=== PATIENT | female | born 1980 | race Caucasian/White ===

== ENCOUNTER 2017-10-15 20:53 | Emergency (ER) | payer BC, OTHER ==
[~2017-10-15] VITALS: Ht 142.2 cm; Wt 44.0 kg
[~2017-10-15 20:53] MED LIST: BCP; DICY10CA3 PO; FLUO20CA19 PO; LEVO75TA8; SERT50TA PO
[2017-10-15 20:56] VITALS: BP 129/85
[2017-10-15 21:42] LABS: HCG UR SG 1.026 (1.003-1.030)
[2017-10-15 21:44] LABS: CULTURE INDICATED? YES; MICROSCOPIC INDICATED
== END 2017-10-15 23:17 | disposition home or self-care (01) ==
LOC: ED 21:34
DX: N30.00 Acute cystitis without hematuria (principal); R30.0 Dysuria; Z90.49 Acquired absence of other specified parts of digestive tract
CPT/HCPCS: 81001; 81025; 87086; 99284

== ENCOUNTER 2017-11-03 18:40 | Emergency (ER) | payer BC, MEDICAID ==
[~2017-11-03] VITALS: Ht 144.8 cm; Wt 46.3 kg
[2017-11-03 19:22] LABS: BASOPHILS # (AUTO) 0.04 x10^3/uL (0-0.1); BASOPHILS % (AUTO) 0 % (0-1); EOSINOPHILS # (AUTO) 0.06 x10^3/uL (0-0.4); EOSINOPHILS % (AUTO) 1 % (1-7); LYMPHOCYTES # (AUTO) 3.39 x10^3/uL (1-3.4); LYMPHOCYTES % (AUTO) 34 % (22-44); MD NO; MEAN CORPUSCULAR HEMOGLOBIN 32.3 pg (27.0-34.8); MEAN CORPUSCULAR HGB CONC 33.5 g/dL (32.4-35.8); MEAN CORPUSCULAR VOLUME 96.6 fL (80-100); MEAN PLATELET VOLUME 7.7 fL (7.4-10.4); MONOCYTES # (AUTO) 0.63 x10^3/uL (0.2-0.8); MONOCYTES % (AUTO) 6 % (2-9); NEUTROPHILS # (AUTO) 5.71 x10^3/uL (1.8-6.8); NEUTROPHILS % (AUTO) 58 % (42-75); PLATELET COUNT 288 x10^3/uL (130-400); RED BLOOD COUNT 4.21 x10^6/uL (3.82-5.3)
[2017-11-03] MEDS ORDERED: ACETAMINOPHEN 500 MG TABLET PO ONE (19:30)
[2017-11-03] MEDS ORDERED: KETOROLAC 30 MG/1 ML IM ONE (19:30)
[2017-11-03] MEDS ORDERED: ONDANSETRON ODT 4 MG PO ONE (19:30)
[2017-11-03 19:32] LABS: ALANINE AMINOTRANSFERASE 15 U/L (12-78); ALBUMIN 3.7 g/dL (3.4-5.0); ANION GAP 5 mmol/L (5-15); CALCIUM 8.7 mg/dL (8.5-10.1); CHLORIDE 109 mmol/L (98-107); CREATININE 0.69 mg/dL (0.55-1.02)
[2017-11-03] MEDS ORDERED: ONDANSETRON ODT 4 MG ONE (19:35)
[2017-11-03] MEDS ORDERED: ACETAMINOPHEN 500 MG TABLET ONE (19:35)
[2017-11-03] MEDS ORDERED: KETOROLAC 30 MG/1 ML ONE (19:35)
[2017-11-03 19:37] LABS: ALKALINE PHOSPHATASE 57 U/L (45-117); BILIRUBIN,TOTAL 0.3 mg/dL (0.2-1.0); TOTAL PROTEIN 7.4 g/dL (6.4-8.2)
[2017-11-03 19:48] LABS: MICROSCOPIC NOT IND
[2017-11-03 19:54] LABS: CULTURE INDICATED? NO
[2017-11-03 20:29] VITALS: BP 124/79
== END 2017-11-03 20:30 | disposition home or self-care (01) ==
LOC: ED 19:07
DX: R10.84 Generalized abdominal pain (principal); R11.0 Nausea; R53.81 Other malaise
CPT/HCPCS: 36415; 80053; 81003; 83690; 84703; 85025; 96372; 99284; J1885; Q0162

== ENCOUNTER 2018-01-17 20:18 | Emergency (ER) | payer MEDICAID ==
[~2018-01-17] VITALS: Ht 144.8 cm; Wt 50.0 kg
[2018-01-17 20:48] VITALS: BP 125/82
[2018-01-17 21:42] LABS: MICROSCOPIC NOT IND
[2018-01-17 21:46] LABS: CULTURE INDICATED? NO
== END 2018-01-17 22:10 | disposition home or self-care (01) ==
LOC: ED 22:00
DX: J06.9 Acute upper respiratory infection, unspecified (principal); Z90.49 Acquired absence of other specified parts of digestive tract
CPT/HCPCS: 81003; 99283

== ENCOUNTER 2018-09-08 08:41 | Inpatient (IN) | payer MEDICAID ==
[~2018-09-08] VITALS: Ht 144.8 cm; Wt 60.9 kg
[2018-09-08 09:01] VITALS: BP 118/66
[2018-09-08] MEDS ORDERED: LACTATED RINGERS 1,000 ML IV SCH ×2 (09:46→10:37)
[2018-09-08] MEDS ORDERED: OXYTOCIN 30U/ 0.9% NaCL 500ML 500 ML IV ONE (09:46)
[2018-09-08] MEDS ORDERED: NEWBORN KIT ONE (09:56)
[2018-09-08] MEDS ORDERED: LIDOCAINE 1%, 20ML ONE (09:56)
[2018-09-08] MEDS ORDERED: OXYTOCIN 30U/ 0.9% NaCL 500ML 500 ML ONE (09:57)
[2018-09-08] MEDS ORDERED: MISOPROSTOL 200 MCG TABLET ONE (09:57)
[2018-09-08] MEDS ORDERED: ONDANSETRON 2MG/ML, 2ML IVPush PRN (10:00)
[2018-09-08] MEDS ORDERED: PENICILLIN GK 5,000,000 UNITS in DEXTROSE 5% 100 ML IVPB ONE (10:00)
[2018-09-08] MEDS ORDERED: CALCIUM CARBONATE 500 MG TAB.CHEW PO PRN (10:00)
[2018-09-08] MEDS ORDERED: TERBUTALINE 1 MG/ML, 1ML IVPush PRN ×2 (10:00)
[2018-09-08] MEDS ORDERED: FENTANYL PF 100 MCG/2ML IV PRN (10:00)
[2018-09-08] MEDS ORDERED: FENTANYL PF 100 MCG/2ML IVPush PRN (10:00)
[2018-09-08] MEDS ORDERED: PENICILLIN GK 2,500,000 UNITS in DEXTROSE 5% 100 ML IVPB SCH (10:00)
[2018-09-08 10:11] LABS: BASOPHILS # (AUTO) 0.04 x10^3/uL (0-0.1); BASOPHILS % (AUTO) 0 % (0-1); EOSINOPHILS # (AUTO) 0.02 x10^3/uL (0-0.4); EOSINOPHILS % (AUTO) 0 % (1-7); LYMPHOCYTES # (AUTO) 2.77 x10^3/uL (1-3.4); LYMPHOCYTES % (AUTO) 18 % (22-44); MD NO; MEAN CORPUSCULAR HEMOGLOBIN 34.1 pg (27.0-34.8); MEAN CORPUSCULAR VOLUME 100.2 fL (80-100); MEAN PLATELET VOLUME 7.2 fL (7.4-10.4); MONOCYTES # (AUTO) 0.89 x10^3/uL (0.2-0.8); MONOCYTES % (AUTO) 6 % (2-9); NEUTROPHILS # (AUTO) 11.39 x10^3/uL (1.8-6.8); NEUTROPHILS % (AUTO) 75 % (42-75); PLATELET COUNT 319 x10^3/uL (130-400); RED BLOOD COUNT 4.27 x10^6/uL (3.82-5.3); RED CELL DISTRIBUTION WIDTH 14.3 % (9.6-15.2)
[2018-09-08] MEDS ORDERED: FENTANYL PF 100 MCG/2ML ONE (10:15)
[2018-09-08] MEDS ORDERED: FENTANYL/BUPIV./NS/PF 250 ML EPIDCONT SCH (10:37)
[2018-09-08] MEDS ORDERED: FENTANYL/BUPIV./NS/PF 250 ML EPIDCONT ONE (10:39)
[2018-09-08] MEDS ORDERED: BUPIVACAINE 0.25% ONE (10:39)
[2018-09-08] MEDS ORDERED: EPHEDRINE 50 MG/ML, 1ML IVPush PRN (11:00)
[2018-09-08] MEDS ORDERED: NALOXONE 0.4 MG/ML, 1ML IVPush PRN (11:00)
[2018-09-08] MEDS ORDERED: LACTATED RINGERS 1,000 ML IVBOLUS PRN (11:00)
[2018-09-08] MEDS: OXYTOCIN 30U/ 0.9% NaCL 500ML 500 ML IV SCH ×2 (11:49→21:49)
[2018-09-08] MEDS ORDERED: IBUPROFEN 600 MG TABLET ONE (11:49)
[2018-09-08] MEDS ORDERED: OXYcodone/APAP 5/325MG TABLET ONE ×2 (11:50→11:51)
[2018-09-08] MEDS: IBUPROFEN 600 MG TABLET PO PRN ×2 (11:54→18:41)
[2018-09-08] MEDS: OXYcodone/APAP 5/325MG TABLET PO PRN (11:55)
[2018-09-08] MEDS ORDERED: ONDANSETRON 2MG/ML, 2ML IV PRN (12:00)
[2018-09-08] MEDS ORDERED: ACETAMINOPHEN 325 MG TABLET PO PRN (12:00)
[2018-09-08] MEDS ORDERED: OXYcodone IR 5MG TABLET PO PRN (12:00)
[2018-09-08] MEDS ORDERED: MISOPROSTOL 200 MCG TABLET PR PRN (12:00)
[2018-09-08 14:50] VITALS: BP 100/70
[2018-09-08 19:20] LABS: BASOPHILS # (AUTO) 0.03 x10^3/uL (0-0.1); BASOPHILS % (AUTO) 0 % (0-1); EOSINOPHILS % (AUTO) 0 % (1-7); LYMPHOCYTES # (AUTO) 1.73 x10^3/uL (1-3.4); LYMPHOCYTES % (AUTO) 11 % (22-44); MD NO; MEAN CORPUSCULAR HEMOGLOBIN 34.3 pg (27.0-34.8); MEAN CORPUSCULAR HGB CONC 34.4 g/dL (32.4-35.8); MEAN PLATELET VOLUME 7.1 fL (7.4-10.4); MONOCYTES # (AUTO) 0.78 x10^3/uL (0.2-0.8); MONOCYTES % (AUTO) 5 % (2-9); NEUTROPHILS # (AUTO) 13.15 x10^3/uL (1.8-6.8); NEUTROPHILS % (AUTO) 84 % (42-75); PLATELET COUNT 296 x10^3/uL (130-400); RED BLOOD COUNT 3.77 x10^6/uL (3.82-5.3); RED CELL DISTRIBUTION WIDTH 14.2 % (9.6-15.2)
[2018-09-08 20:20] VITALS: BP 113/70
[2018-09-09 00:01] VITALS: BP 105/72
[2018-09-09] MEDS: IBUPROFEN 600 MG TABLET PO PRN ×4 (01:02→20:44)
[2018-09-09 04:35] VITALS: BP 124/75
[2018-09-09 07:15] VITALS: BP 118/78
[2018-09-09] MEDS: PRENATAL VIT/IRON/FA 1 EACH TABLET PO SCH (07:33)
[2018-09-09] MEDS ORDERED: MEASLES,MUMPS&RUBELLA VACC/PF 0.5 ML SQ-VACC ONE (08:00)
[2018-09-09] MEDS: OXYcodone/APAP 5/325MG TABLET PO PRN ×2 (13:42→20:44)
[2018-09-09 20:40] VITALS: BP 118/83
[2018-09-09] MEDS: DOCUSATE 100 MG CAPSULE PO PRN (20:44)
[2018-09-10] MEDS: OXYcodone/APAP 5/325MG TABLET PO PRN (02:58)
[2018-09-10] MEDS: IBUPROFEN 600 MG TABLET PO PRN (02:58)
[2018-09-10] MEDS ORDERED: DIPH,PERTUSS(ACELL),TET VAC/PF NC IM-VACC ONE (06:30)
[2018-09-10 10:10] VITALS: BP_SYST 109; BP_SYST 117; BP_DIAS 70; BP_DIAS 76
[2018-09-10] MEDS: PRENATAL VIT/IRON/FA 1 EACH TABLET PO SCH (10:15)
[2018-09-10] MEDS: DOCUSATE 100 MG CAPSULE PO PRN (10:15)
[2018-09-10] MEDS ORDERED: IBUP-1222 PO (11:30)
[2018-09-10] MEDS ORDERED: OXYC-302 PO (11:30)
== END 2018-09-10 11:54 | disposition home or self-care (01) | DRG 807 ==
LOC: LDOP 08:41 → LDIP 09:46 → 2NW 13:40
PROVIDERS: ADMIT Obstetrics & Gynecology; ATTEND Obstetrics & Gynecology
PROC: 10E0XZZ Delivery of Products of Conception, External Approach (ICD-10-PCS; principal; 2018-09-08)
PROC: 0HQ9XZZ Repair Perineum Skin, External Approach (ICD-10-PCS; 2018-09-08)
PROC: 3E0R3BZ Introduction of Anesthetic Agent into Spinal Canal, Percutaneous Approach (ICD-10-PCS; 2018-09-08)
PROC: 00HU33Z Insertion of Infusion Device into Spinal Canal, Percutaneous Approach (ICD-10-PCS; 2018-09-08)
DX: O99.824 Streptococcus B carrier state complicating childbirth (principal); Z37.0 Single live birth; O69.81X0 Labor and delivery complicated by cord around neck, without compression, not applicable or unspecified; O70.0 First degree perineal laceration during delivery; E03.9 Hypothyroidism, unspecified; O99.284 Endocrine, nutritional and metabolic diseases complicating childbirth; Z3A.38 38 weeks gestation of pregnancy; Z90.49 Acquired absence of other specified parts of digestive tract; Z88.6 Allergy status to analgesic agent; Z88.5 Allergy status to narcotic agent
CPT/HCPCS: 36415; J3490; 85025; 86850; 86900; 90715; G0378; J2540; J3010; J2590; J7120

== ENCOUNTER 2019-04-18 18:34 | Emergency (ER) | payer MEDICAID ==
[~2019-04-18] VITALS: Ht 144.8 cm; Wt 60.0 kg
[~2019-04-18 18:34] MED LIST changes: +IBUP-1222 PO; +OXYC-302 PO
--- NOTE | 2019-04-18 19:28 | NUR ---
Pt to ED from home. was urinating, had intense pain LLQ/groin. now radiates into L back. lmp Dec 12. denies being sexually active. denies dysuria/frequency. A&Ox4 GCS 15. RICARDO Glasgow in room for eval. vss. call erwin in reach.
[2019-04-18] MEDS ORDERED: MORPHINE SULFATE 4 MG/ML, 1ML ONE (19:43)
[2019-04-18] MEDS ORDERED: ONDANSETRON 2MG/ML, 2ML ONE (19:43)
[2019-04-18] MEDS ORDERED: KETOROLAC 30 MG/1 ML ONE (19:58)
[2019-04-18 19:59] LABS: HCG UR SG 1.009 (1.003-1.030)
[2019-04-18] MEDS ORDERED: KETOROLAC 30 MG/1 ML IVPush ONE (20:00)
[2019-04-18] MEDS ORDERED: MORPHINE SULFATE 4 MG/ML, 1ML IVPush ONE (20:00)
[2019-04-18] MEDS ORDERED: ONDANSETRON 2MG/ML, 2ML IVPush ONE (20:00)
[2019-04-18 20:05] LABS: MICROSCOPIC INDICATED
[2019-04-18 20:09] LABS: BASOPHILS # (AUTO) 0.02 x10^3/uL (0-0.1); BASOPHILS % (AUTO) 0 % (0-1); EOSINOPHILS # (AUTO) 0.12 x10^3/uL (0-0.4); EOSINOPHILS % (AUTO) 2 % (1-7); LYMPHOCYTES % (AUTO) 33 % (22-44); MD NO; MEAN CORPUSCULAR HGB CONC 32.9 g/dL (32.4-35.8); MEAN CORPUSCULAR VOLUME 97.2 fL (80-100); MEAN PLATELET VOLUME 7.7 fL (7.4-10.4); MONOCYTES # (AUTO) 0.49 x10^3/uL (0.2-0.8); MONOCYTES % (AUTO) 7 % (2-9); NEUTROPHILS # (AUTO) 4.02 x10^3/uL (1.8-6.8); NEUTROPHILS % (AUTO) 58 % (42-75); PLATELET COUNT 294 x10^3/uL (130-400); RED BLOOD COUNT 4.21 x10^6/uL (3.82-5.3); RED CELL DISTRIBUTION WIDTH 13.6 % (9.6-15.2)
--- NOTE | 2019-04-18 20:09 | NUR ---
piv est, meds per mar, plan for ct, pt aware/agrees.
[2019-04-18 20:18] LABS: ALANINE AMINOTRANSFERASE 21 U/L (12-78); ALBUMIN 3.9 g/dL (3.4-5.0); ANION GAP 7 mmol/L (5-15); CALCIUM 8.9 mg/dL (8.5-10.1); CHLORIDE 105 mmol/L (98-107); CREATININE 0.83 mg/dL (0.55-1.02)
[2019-04-18 20:21] LABS: ALKALINE PHOSPHATASE 90 U/L (45-117); BILIRUBIN,TOTAL 0.3 mg/dL (0.2-1.0); TOTAL PROTEIN 7.8 g/dL (6.4-8.2)
[2019-04-18 20:23] LABS: CULTURE INDICATED? YES
--- NOTE | 2019-04-18 20:24 | NUR ---
TAKEN TO CT
--- NOTE | 2019-04-18 20:33 | NUR ---
PT TO AND FROM CT.
--- NOTE | 2019-04-18 20:49 | NUR ---
PT STS AFTER CT EXPERIENCING MORE PAIN THAT "RADIATES FROM HER LOWER BACK ALL THE WAY UP TO HER SHOULDERS." PA UPDATED, NO NEW ORDERS AT THIS TIME
--- NOTE | 2019-04-18 20:50 | NUR ---
ALL RESULTS BACK AT THIS TIME, CHART UP FOR RECHECK
[2019-04-18] MEDS ORDERED: HYDROmorphone 1 MG/ML, 1ML INJ ONE (21:25)
[2019-04-18] MEDS ORDERED: HYDROmorphone 1 MG/ML, 1ML INJ IV ONE (21:30)
--- NOTE | 2019-04-18 22:03 | NUR ---
pt reports relief of pain from 10/10 to 3/10 after dilaudid. lying in bed texting, occasionally moaning very loudly. call erwin in reach. OOB to bathroom, gait steady.
[2019-04-18] MEDS ORDERED: ONDANSETRON ODT 4 MG PO ONE (22:30)
[2019-04-18] MEDS ORDERED: FAMOTIDINE 20 MG TABLET PO ONE (22:30)
[2019-04-18] MEDS ORDERED: FAMOTIDINE 20 MG TABLET ONE (22:31)
[2019-04-18] MEDS ORDERED: ONDANSETRON ODT 4 MG ONE (22:32)
[2019-04-18] MEDS ORDERED: MAALOX/HYOSCYAMINE/LIDOCAINE 45 ML BTL ONE (22:33)
[2019-04-18 22:38] VITALS: BP 107/68
--- NOTE | 2019-04-18 22:38 | NUR ---
meds per mar, pt to be dc. aware. calm, appropriate.
[2019-04-18] MEDS ORDERED: MAALOX/HYOSCYAMINE/LIDOCAINE 45 ML BTL PO ONE (23:00)
== END 2019-04-18 23:04 | disposition home or self-care (01) ==
LOC: ED 21:55
DX: R10.32 Left lower quadrant pain (principal); R11.0 Nausea; F12.10 Cannabis abuse, uncomplicated
CPT/HCPCS: 36415; 74176; 80053; 81001; 81025; 83690; 85025; 87086; 96374; 96375; 99284; J1170; J1885; J2270; J2405; Q0162